=== PATIENT | male | born 1960 ===

== ENCOUNTER → 2017-10-19 | Outpatient (REF) ==
[2017-10-19 10:08] LABS: THYROID STIMULATING HORMONE 3.96 uIU/mL (0.465-4.680)
== END ==
LOC: ZLAB.WCH 08:54
PROVIDERS: Physician Assistant
DX: Z01.89 Encounter for other specified special examinations (principal)

== ENCOUNTER → 2018-04-22 | Outpatient (REF) | LOC: ZLAB.WCH 15:54 | DX: Z01.89 Encounter for other specified special examinations (principal) | CPT/HCPCS: G0103 ==